=== PATIENT | male | born 1995 | race Caucasian/White ===

== ENCOUNTER 2021-02-20 21:42 | Emergency (ER) | payer MEDICAID ==
[~2021-02-20] VITALS: Ht 170.2 cm; Wt 70.0 kg
[2021-02-20 23:00] VITALS: BP 127/74
== END 2021-02-20 23:05 | disposition home or self-care (01) ==
LOC: ER 21:42
DX: F15.129 Other stimulant abuse with intoxication, unspecified (principal); R53.81 Other malaise
CPT/HCPCS: 99283

== ENCOUNTER 2021-02-21 00:08 | Emergency (ER) | payer MEDICAID ==
[~2021-02-21] VITALS: Ht 165.1 cm; Wt 63.0 kg
[2021-02-21 04:16] LABS: BASOPHILS % 0.6 % (0.0-2.0); EOSINOPHILS % 1.2 % (0.0-5.0); HEMATOCRIT. 38.1 % (42.0-52.0); HEMOGLOBIN. 13.2 g/dL (14.0-18.0); LYMPHOCYTES % 27.2 % (20.0-50.0); MEAN CORPUSCULAR HEMOGLOBIN 29.9 pg (28.0-32.0); MEAN CORPUSCULAR VOLUME 86.7 fL (80.0-94.0); MONOCYTES % 8.5 % (2.0-8.0); NEUTROPHILS % 62.5 % (40.0-76.0); PLATELET 263 x1000/uL (130-400); RED CELL DISTRIBUTION WIDTH 13.5 % (11.6-14.6)
[2021-02-21 04:24] LABS: CHLORIDE 104 mEq/L (98-107)
[2021-02-21 04:27] LABS: ETHANOL BLOOD < 10 mg/dL
[2021-02-21 05:48] LABS: CLARITY URINE CLEAR (CLEAR); COLOR URINE YELLOW (YELLOW); KETONES URINE 4+ (NEGATIVE); LEUKOCYTE ESTERASE URINE NEGATIVE (NEGATIVE); NITRITE URINE NEGATIVE (NEGATIVE); OCCULT BLOOD URINE NEGATIVE (NEGATIVE); PH URINE 5.5 (4.5-8.0); PROTEIN URINE TRACE (NEGATIVE); SPECIFIC GRAVITY URINE 1.027 (1.005-1.030)
[2021-02-21 06:20] VITALS: BP 119/78
== END 2021-02-21 06:36 | disposition home or self-care (01) ==
LOC: ER 00:08
DX: F15.129 Other stimulant abuse with intoxication, unspecified (principal); F15.10 Other stimulant abuse, uncomplicated
CPT/HCPCS: 36415; 80048; 80320; 81003; 85025; 99283; G0480